=== PATIENT | female | born 1935 | race Caucasian/White ===

== ENCOUNTER → 2021-09-27 10:10 | Outpatient (BNVA) | payer MEDICARE, MEDICAID, SELFPAY | PROVIDERS: Family Provider Family Medicine; PCP Internal Medicine; Referring Provider Family Medicine; Visit Provider Anesthesiology Pain Medicine | DX: M79.18 Myalgia, other site (principal); M50.90 Cervical disc disorder, unspecified, unspecified cervical region; Z86.59 Personal history of other mental and behavioral disorders; Z79.891 Long term (current) use of opiate analgesic; Z87.891 Personal history of nicotine dependence | CPT/HCPCS: 20553; 99204; J1030; J3490 ==

== ENCOUNTER → 2022-02-22 09:56 | Day surgery (SDC) | payer MEDICARE, MEDICAID, SELFPAY ==
[2022-02-22 10:05] VITALS: BP 144/100; PULSE 100; RESP 18; TEMP 36.8; O2SAT 94
[2022-02-22] MEDS: ferric carboxy (IVPB) 750 MG in sodium chloride 0.9% (100 ml) 100 ML 300 MG IV (10:45)
== END ==
PROVIDERS: PCP Internal Medicine; Visit Provider Internal Medicine
DX: D64.9 Anemia, unspecified (principal)
CPT/HCPCS: 96365; J1439

== ENCOUNTER → 2022-03-01 12:26 | Day surgery (SDC) | payer MEDICARE, MEDICAID, SELFPAY ==
[2022-03-01] MEDS: ferric carboxy (IVPB) 750 MG in sodium chloride 0.9% (100 ml) 100 ML 345 MG IV (12:55)
[2022-03-01 13:16] VITALS: BP 152/97; PULSE 78; RESP 18; TEMP 37.1; O2SAT 92
== END ==
PROVIDERS: PCP Internal Medicine; Visit Provider Internal Medicine
DX: D64.9 Anemia, unspecified (principal)
CPT/HCPCS: 96365; J1439